=== PATIENT | male | born 1955 | race Caucasian/White ===

== ENCOUNTER 2017-02-08 17:05 | Emergency (ER) | payer OTHER | END 2017-02-08 18:40 | disposition home or self-care (01) | LOC: ER 17:05 | DX: R07.89 Other chest pain (principal); I10 Essential (primary) hypertension; I48.91 Unspecified atrial fibrillation; Z79.82 Long term (current) use of aspirin; Z79.899 Other long term (current) drug therapy | CPT/HCPCS: 36415 ==